=== PATIENT | female | born 1990 | race Asian ===

== ENCOUNTER 2016-11-11 00:22 | Emergency (ER) | payer OTHER ==
[~2016-11-11] VITALS: Ht 157.5 cm; Wt 59.9 kg
[2016-11-11 02:17] LABS: PLATELET COUNT 222 x10^3mcL (130-400)
[2016-11-11 02:21] LABS: CALCIUM 8.9 mg/dL (8.5-10.1); CARBON DIOXIDE 27.9 mmol/L (21-32); CHLORIDE SERUM 100 mmol/L (98-107); CREATININE SERUM 0.9 mg/dL (0.6-1.0); GFR1 > 60 mL/min; GLUCOSE SERUM 98 mg/dL (74-106); POTASSIUM SERUM 3.8 mmol/L (3.5-5.1); SODIUM SERUM 136 mmol/L (136-145)
[2016-11-11 02:27] LABS: ALBUMIN 3.5 g/dL (3.4-5.0); ALKALINE PHOSPHATASE 50 U/L (46-116); ALT/SGPT 33 U/L (14-59); AST/SGOT 45 U/L (15-37); BILIRUBIN TOTAL 0.39 mg/dL (0.20-1.00); LIPASE 171 IU/L (73-393); TOTAL PROTEIN, SERUM 7.9 g/dL (6.4-8.2)
[2016-11-11 02:29] LABS: BASOPHIL % 3.8 % (0-2); RED CELL DISTRIBUTION WIDTH 11.1 % (11.5-14.5)
[2016-11-11 03:45] VITALS: BP 121/60
== END 2016-11-11 03:45 | disposition home or self-care (01) ==
LOC: ED 00:22
PROVIDERS: Emergency Medicine
DX: R19.7 Diarrhea, unspecified (principal); M79.1 Myalgia; R09.89 Other specified symptoms and signs involving the circulatory and respiratory systems; R05 Cough
CPT/HCPCS: 86308; 87804; J0500